=== PATIENT | male | born 1995 | race African-American/Black ===

== ENCOUNTER 2020-03-16 23:56 | Emergency (ER) | payer SELFPAY ==
[~2020-03-16] VITALS: Ht 177.8 cm; Wt 98.0 kg
[2020-03-17] MEDS ORDERED: IBUPROFEN 600MG TABLET PO STA (01:07)
[2020-03-17 02:39] VITALS: BP 128/68
== END 2020-03-17 02:51 | disposition home or self-care (01) ==
LOC: ER 23:56
DX: S80.12XA Contusion of left lower leg, initial encounter (principal); V49.49XA Driver injured in collision with other motor vehicles in traffic accident, initial encounter; Y93.89 Activity, other specified; Y92.89 Other specified places as the place of occurrence of the external cause; Y99.8 Other external cause status
CPT/HCPCS: 29125; 73110; 73590; 99284